=== PATIENT | female | born 1965 | race Caucasian/White ===

== ENCOUNTER 2020-03-30 07:56 | Outpatient (RCR) | payer OTHER | END 2020-03-31 | LOC: OT 07:56 | PROVIDERS: ATTEND Specialist | DX: S62.604A Fracture of unspecified phalanx of right ring finger, initial encounter for closed fracture (principal) ==

== ENCOUNTER 2020-04-01 08:04 | Outpatient (RCR) | payer OTHER | END 2020-05-01 | LOC: OT 08:04 | PROVIDERS: ATTEND Specialist | DX: S62.604A Fracture of unspecified phalanx of right ring finger, initial encounter for closed fracture (principal) ==

== ENCOUNTER → 2023-04-08 | Outpatient (CLI) | payer BC | LOC: MAMMO 12:49 | PROVIDERS: ATTEND Internal Medicine | DX: Z12.31 Encounter for screening mammogram for malignant neoplasm of breast (principal) | CPT/HCPCS: 77067 ==